=== PATIENT | female | born 1955 | race Caucasian/White ===

== ENCOUNTER 2018-09-07 03:36 | Emergency (ER) | payer SELFPAY ==
[~2018-09-07] VITALS: Ht 157.5 cm; Wt 127.0 kg
[2018-09-07] MEDS ORDERED: ASPIRIN 81MG TABLET PO ONE (06:30)
[2018-09-07 07:26] LABS: BASOPHILS % 0.7 % (0.0-2.0); EOSINOPHILS % 1.9 % (0.0-5.0); HEMATOCRIT. 35.5 % (36.0-48.0); HEMOGLOBIN. 12.2 g/dL (12.0-16.0); LYMPHOCYTES % 27.3 % (20.0-50.0); MEAN CORPUSCULAR HEMOGLOBIN 28.8 pg (28.0-32.0); MEAN CORPUSCULAR VOLUME 83.4 fL (81.0-99.0); MEAN PLATELET VOLUME 8.7 fl (7.4-10.4); MONOCYTES % 5.8 % (2.0-8.0); NEUTROPHILS % 64.3 % (40.0-76.0); PLATELET 283 x1000/uL (130-400); RED BLOOD CELL COUNT 4.25 mill/uL (4.2-5.4); RED CELL DISTRIBUTION WIDTH 12.8 % (11.6-14.6)
[2018-09-07] MEDS ORDERED: LEVOFLOXACIN 250MG TABLET PO ONE (07:30)
[2018-09-07 07:31] LABS: CHLORIDE 105 mEq/L (98-107)
[2018-09-07] MEDS ORDERED: SODIUM CHLORIDE 0.9% 1,000 ML IV ONE (08:00)
[2018-09-07 08:55] VITALS: BP 161/91
[2018-09-07] MEDS ORDERED: LEVOFLOXACIN 250MG TABLET PO NR (09:00)
== END 2018-09-07 09:04 | disposition home or self-care (01) ==
LOC: ER 03:36
DX: J18.9 Pneumonia, unspecified organism (principal); I11.0 Hypertensive heart disease with heart failure; I50.9 Heart failure, unspecified; E11.65 Type 2 diabetes mellitus with hyperglycemia
CPT/HCPCS: 36415; 71045; 80053; 82962; 83880; 84484; 85025; 93005; 99284; J7030